=== PATIENT | female | born 1955 | race Caucasian/White ===

== ENCOUNTER 2018-12-21 08:17 | Outpatient (RCR) | payer MEDICARE, MEDICAID ==
[~2018-12-21 08:17] MED LIST: ANTIHISTAMINE; APRESOLINE; APRESOLINE 25MG25 MG PO; BYDUREON INJ; BYDUREON2MG SQ; CETIRIZINE; DESYREL; FUROSEMIDE; GLUCOPHAGE; HCTZ; HCTZ 25MG25 MG PO; HYDRALAZINE HC100 MG PO; HYDROCHLOROTHIA25 MG PO; K-DUR 2020 MEQ PO; LAMICTAL; LAMICTAL XR300 MG PO; LAMICTAL150 MG PO; LAMICTAL200 MG PO; METFORMIN HYD1000 MG PO; METFORMIN850 MG PO; METOPROLOL SR100 MG PO; METOPROLOL SUCC50 MG PO; NORCO 325 MG-51 TAB PO; OMEPRAZOLE DR20 MG PO; ONGLYZA5 MG PO; PLAVIX 75MG TAB75 MG PO; POTASSIUM CH2 MEQ/ML PO; PRILOSEC; PROTONIX40 MG PO; REGLAN 10MG10 MG/TAB PO; REGLAN 5MG T5 MG/TAB PO; SINGULAIR10 MG PO; TRAZADONE HYDR100 MG PO; ULTRAM 50MG TAB50 MG PO; ZOCOR 40MG40 MG PO; ZOCOR10 MG PO; ZYLOPRIM 100MG100 MG PO
== END 2019-03-21 | disposition home or self-care (01) ==
LOC: WSST
DX: R13.10 Dysphagia, unspecified (principal)

== ENCOUNTER → 2018-12-30 | Outpatient (CLI) | payer MEDICARE, MEDICAID | LOC: COL.RAD 08:30 | DX: R13.10 Dysphagia, unspecified (principal) ==

== ENCOUNTER → 2021-09-25 | Outpatient (CLI) | payer MEDICARE, MEDICAID | LOC: COL.RAD 07:28 | DX: R53.1 Weakness (principal); Z86.73 Personal history of transient ischemic attack (TIA), and cerebral infarction without residual deficits | CPT/HCPCS: A9575 ==

== ENCOUNTER 2021-11-02 16:18 | Emergency (ER) | payer MEDICARE, MEDICAID ==
[~2021-11-02] VITALS: Ht 167.6 cm; Wt 82.3 kg
[2021-11-02 16:27] VITALS: TEMP 97.9
[2021-11-02 16:56] LABS: BASO % 0.3 % (0.0-2.0); EOS # 0.1 K/mm3 (0.0-0.7); EOS % 1.6 % (0.0-4.0); GRAN # 2.3 K/mm3 (1.4-6.5); GRAN % 40.1 % (42.2-75.2); HEMATOCRIT 43.2 % (37.0-47.0); HEMOGLOBIN 14.4 g/dl (12.5-16.0); LYMPH # 2.7 K/mm3 (1.2-3.4); LYMPH % 47.2 % (20.0-51.0); MEAN CELL VOLUME 92 fl (80.0-100.0); MEAN CORPUSCULAR HEMOGLOBIN 31 pg (27-31); MEAN CORPUSCULAR HGB CONC 33 g/dl (33.0-37.0); MEAN PLATELET VOLUME 10.8 fl (7.4-10.4); MONO # 0.6 K/mm3 (0.1-0.6); MONO % 10.5 % (1.7-9.3); PLATELET COUNT 239 K/mm3 (130-400); RED BLOOD COUNT 4.71 M/mm3 (4.10-5.30); REDCELL DISTRIBUTION WIDTH-CV 13.2 % (11.5-14.5)
[2021-11-02 16:57] LABS: INR 1.2 (0.8-3.0); PROTHROMBIN TIME 13.1 SECONDS (9.7-12.8)
[2021-11-02 17:00] LABS: PARTIAL THROMBOPLASTIN TIME 32.6 SECONDS (26.0-37.0)
[2021-11-02 17:55] LABS: ALANINE AMINOTRANSFERASE 28 U/L (0-55); ALBUMIN 4.3 gm/dL (3.4-4.8); ALKALINE PHOSPHATASE 53 U/L (40-150); ANION GAP 11 mmol/L (7-16); AST,SGOT 29 U/L (5-34); BILIRUBIN,TOTAL 0.5 mg/dL (0.2-1.2); BLOOD UREA NITROGEN 12 mg/dL (10-20); CALCIUM 9.7 mg/dL (8.4-10.2); CARBON DIOXIDE 21 mmol/L (23-31); CHLORIDE 108 mmol/L (98-107); CREATININE, serum 1.23 mg/dL (0.57-1.11); GLUCOSE 138 mg/dL (70-99); POTASSIUM 4.1 mmol/L (3.5-4.5); SODIUM 140 mmol/L (136-145); TOTAL PROTEIN 7.1 gm/dL (6.2-8.1)
[2021-11-02 17:56] LABS: TROPONIN-I < 0.010 ng/mL (0.00-0.033)
[2021-11-02 20:42] VITALS: BP 175/99; PULSE 89
== END 2021-11-02 20:45 | disposition short-term general hospital (02) ==
LOC: COL.ER 16:18
PROVIDERS: Emergency Medicine
DX: I10 Essential (primary) hypertension (principal); R53.1 Weakness; R29.818 Other symptoms and signs involving the nervous system; Z91.040 Latex allergy status; Z79.01 Long term (current) use of anticoagulants
CPT/HCPCS: J2405; Q9967

== ENCOUNTER 2024-01-05 19:41 | Emergency (ER) | payer MEDICARE, MEDICAID ==
[~2024-01-05] VITALS: Ht 167.6 cm; Wt 77.3 kg
[~2024-01-05 19:41] MED LIST changes: +AJOVY AUTO225 MG/1.5 SQ; +ATARAX 25MG25 MG/TAB PO; +ERGOCALCIFER50000 IU PO; +FLEXERIL 1010 MG/TAB PO; +LIPITOR 40MG TA40 MG PO; +MAG-OX 400400 MG/TAB PO; +MIRALAX PA17 GM/Dose PO; +NEURONTIN100 MG/CAP PO; +PERCOCET 325 MG1 TA2 PO; +PROTONIX 40MG T40 MG PO; +SINGULAIR 110 MG/TAB PO; +UBRELVY100 MG PO; +VASOTEC20 MG PO; +VICTOZA6 MG/ML SQ; +ZOFRAN ODT4 MG PO; +ZYRTEC 10MG10 MG PO
[2024-01-05 19:42] VITALS: TEMP 98.3
[2024-01-05 20:19] LABS: BASO % 0.5 % (0.0-2.0); EOS % 0.2 % (0.0-4.0); GRAN # 3.2 K/mm3 (1.4-6.5); GRAN % 54.1 % (42.2-75.2); HEMATOCRIT 38.5 % (37.0-47.0); HEMOGLOBIN 12.6 g/dl (12.5-16.0); LYMPH # 2.3 K/mm3 (1.2-3.4); LYMPH % 38.6 % (20.0-51.0); MEAN CELL VOLUME 92 fl (80.0-100.0); MEAN CORPUSCULAR HEMOGLOBIN 30 pg (27-31); MEAN CORPUSCULAR HGB CONC 33 g/dl (33.0-37.0); MEAN PLATELET VOLUME 10.7 fl (7.4-10.4); MONO # 0.4 K/mm3 (0.1-0.6); MONO % 6.3 % (1.7-9.3); PLATELET COUNT 221 K/mm3 (130-400); REDCELL DISTRIBUTION WIDTH-CV 12.7 % (11.5-14.5)
[2024-01-05 21:04] LABS: ALANINE AMINOTRANSFERASE 13 U/L (0-55); ALBUMIN 3.6 g/dL (3.4-4.8); ALKALINE PHOSPHATASE 55 U/L (40-150); ANION GAP 12 mmol/L (7-16); AST,SGOT 13 U/L (5-34); BILIRUBIN,TOTAL 0.5 mg/dL (0.2-1.2); BLOOD UREA NITROGEN 15 mg/dL (10-20); CALCIUM 9.5 mg/dL (8.4-10.2); CHLORIDE 106 mEq/L (98-107); CREATININE, serum 1.18 mg/dL (0.57-1.11); GLUCOSE 178 mg/dL (70-99); MAGNESIUM 1.6 mg/dL (1.6-2.6); POTASSIUM 3.6 mEq/L (3.5-4.5); SODIUM 138 mEq/L (136-145)
[2024-01-05 21:27] LABS: TROPONIN-I < 0.010 ng/mL (0.00-0.033)
[2024-01-05] MEDS ORDERED: Magnesium Sulfate 4% 50 ML IV ONE (22:00)
[2024-01-05 22:59] LABS: COLLECTION METHOD CLEAN CATCH
[2024-01-05 23:10] LABS: PH 5.5 (5.0-8.5); URINE APPEARANCE CLEAR (CLEAR/HAZY); URINE BLOOD NEGATIVE (NEGATIVE); URINE COLOR YELLOW (YELLOW); URINE GLUCOSE NEGATIVE (NEGATIVE); URINE KETONE NEGATIVE (NEGATIVE); URINE NITRATE NEGATIVE (NEGATIVE); URINE PROTEIN(semi-quant) NEGATIVE (NEGATIVE); URINE UROBILINOGEN 0.2 E.U/dL (0.2-1.0)
[2024-01-06] MEDS ORDERED: levETIRAcetam 500 MG TAB PO ONE (00:15)
[2024-01-06] MEDS ORDERED: KEPPRA250 MG PO (00:18)
[2024-01-06 00:23] VITALS: BP 131/75; PULSE 76
== END 2024-01-06 00:39 | disposition other institution (70) ==
LOC: COL.ER 19:41
PROVIDERS: Emergency Medicine
DX: R55 Syncope and collapse (principal); G40.909 Epilepsy, unspecified, not intractable, without status epilepticus; I44.7 Left bundle-branch block, unspecified; E86.0 Dehydration; Z91.040 Latex allergy status
CPT/HCPCS: J3475

== ENCOUNTER 2024-02-03 11:56 | Day surgery (SDC) | payer MEDICARE, MEDICAID ==
[~2024-02-03] VITALS: Ht 167.6 cm; Wt 75.0 kg
[2024-02-03] VITALS (9 sets, daily range): BP systolic 106–141; BP diastolic 64–84; PULSE 71–87; TEMP 97.3–98.1
[~2024-02-03 11:56] MED LIST changes: +KEPPRA250 MG PO
[2024-02-03] MEDS ORDERED: ceFAZolin 1 G in Water For Injection,Sterile 10 ML IV SCH ×2 (12:00→18:00)
[2024-02-03] MEDS ORDERED: 1/2 NS 1,000 ML IV SCH (12:00)
[2024-02-03] MEDS ORDERED: ZYPREXA2.5 MG PO (12:21)
[2024-02-03] MEDS ORDERED: QULIPTA60 MG PO (12:22)
[2024-02-03 12:43] LABS: HEMATOCRIT 42.9 % (37.0-47.0); HEMOGLOBIN 14.3 g/dl (12.5-16.0); MEAN CELL VOLUME 91 fl (80.0-100.0); MEAN CORPUSCULAR HEMOGLOBIN 30 pg (27-31); MEAN CORPUSCULAR HGB CONC 33 g/dl (33.0-37.0); MEAN PLATELET VOLUME 10.2 fl (7.4-10.4); PLATELET COUNT 235 K/mm3 (130-400); REDCELL DISTRIBUTION WIDTH-CV 12.8 % (11.5-14.5)
[2024-02-03 12:48] LABS: INR 1.2 (0.8-3.0); PROTHROMBIN TIME 12.8 SECONDS (9.7-12.8)
[2024-02-03 12:59] LABS: CALCIUM 10.2 mg/dL (8.4-10.2); CREATININE, serum 1.25 mg/dL (0.57-1.11); POTASSIUM 4.4 mEq/L (3.5-4.5)
[2024-02-03] MEDS ORDERED: NS 1,000 ML IV.SOLN. IR SCH (14:45)
[2024-02-03] MEDS ORDERED: Topical Skin Adhesive 1 EACH (1 ML) TOP ONE (15:33)
--- NOTE | 2024-02-03 15:35 | NUR ---
SEE MERGE FOR PROCEDURE DOCUMENTATION
[2024-02-03] MEDS ORDERED: fentaNYL 50 MCG/ML 2 ML VIAL IV SCH (16:04)
[2024-02-03] MEDS ORDERED: Midazolam 2 MG/2 ML VIAL IV SCH (16:05)
[2024-02-03] MEDS ORDERED: hydrOXYzine HCl 25 MG TAB PO PRN (16:15)
[2024-02-03] MEDS ORDERED: Bisacodyl 5 MG TAB PO PRN (16:15)
[2024-02-03] MEDS ORDERED: Acetaminophen 500 MG TAB PO PRN (17:00)
[2024-02-03] MEDS ORDERED: Magnes Hydrox (MOM) 80 MG/ML 30 ML CUP PO PRN (17:00)
[2024-02-03] MEDS ORDERED: Ondansetron 4 MG/2 ML VIAL IV PRN (17:00)
[2024-02-03] MEDS ORDERED: traMADol 50 MG TAB PO PRN (17:00)
--- NOTE | 2024-02-03 17:00 | NUR ---
PT ESCORTED TO ROOM AT THIS TIME VIA BED. PT ALERTED AND ORIENTED X4. VSS. PACEMAKER AND PREVIOUS LOOP RECORDER SITE DRESSINGS CDI. SLING ON LEFT ARM RESTRICTION. PT EDUCATED ON POST-PACEMAKER INSTRUCTIONS. TELEMETRY ON AND READS 89BPM. PT V-PACED ON TELE. PT ORIENTED TO ROOM AND CALL LIGHT. BED ALARM ON. NO FURTHER CONCERNS AT THIS TIME.
[2024-02-03] MEDS ORDERED: Clopidogrel 75 MG TAB PO SCH (21:00)
[2024-02-03] MEDS ORDERED: OLANZapine 5 MG TAB PO SCH (21:00)
[2024-02-03] MEDS ORDERED: Atorvastatin 40 MG TAB PO SCH (21:00)
[2024-02-03] MEDS ORDERED: Melatonin 3 MG TAB PO PRN (21:00)
[2024-02-03] MEDS ORDERED: Gabapentin 100 MG CAP PO SCH (21:00)
[2024-02-03] MEDS ORDERED: lamoTRIgine 100 MG TAB PO SCH (21:00)
[2024-02-03] MEDS ORDERED: Montelukast 10 MG TAB PO SCH (21:00)
--- NOTE | 2024-02-03 22:26 | NUR ---
PT RESTING IN BED, ALERT AND ORIENTEDX4. ASSESSED AND GAVE NIGHT MEDS. RATES PAIN 5/10 IN THE LEFT CHEST SURGICAL SITE. GAVE PT ULTRAM. PT HAS BEEN UP TO THE BATHROOM AND VOIDED. SURGAL SITES ARE CLEAN DRY INTACT. VITALS STABLE NO OTHER COMPLAINTS AT THIS TIME. CALL LIGHT WITHIN REACH.
[2024-02-04] VITALS (7 sets, daily range): BP systolic 102–135; BP diastolic 60–75; PULSE 75–82; TEMP 97.5–98.1
--- NOTE | 2024-02-04 | NUR ---
Recieved report from TUYET Villagomez. Assumed care of patient at this time.
--- NOTE | 2024-02-04 07:00 | NUR ---
NO CONCERNS FROM OVERNIGHT NURSE. PATIENT IS RESTING IN BED WATCHING TV. ALERT AND ORIENTED. DENIES PAIN OR DISCOMFORT AT THIS TIME. INCISION SITE TO LEFT CHEST IS COVERED WITH GAUZE AND TAPE. CDI. DEVICE DOWNLOADED. CXR AND EKG COMPLETED. CALL LIGHT WITHIN REACH.
[2024-02-04] MEDS ORDERED: Allopurinol 100 MG TAB PO SCH (09:00)
[2024-02-04] MEDS ORDERED: CEPHALEXIN500 M1 PO (11:56)
--- NOTE | 2024-02-04 13:13 | NUR ---
THIS RN DISCONTINUED INT TO LEFT AC. NO REDNESS, DRAINAGE, OR EDEMA NOTED. THIS RN ALSO GAVE PATIENT DISCHARGE INSTRUCTIONS AND EDUCATION. PATIENT IN UNDERSTANDING. FAMILY AT BEDSIDE. TELE REMOVED.
--- NOTE | 2024-02-04 13:40 | NUR ---
PATIENT ESCORTED OFF UNIT VIA WHEELCHAIR BY THIS RN. ALL BELONGINGS WITH PATIENT.
--- NOTE | 2024-02-04 13:50 | NUR ---
child daycare worker and SW Student met with patient to discuss discharge planning. Patient reports to live alone in [place] but has family visit her daily. Milagro (Daughter) [phone] and Agueda (daughter) [phone]. PCP is Dr. Flores, Pharmacy is [facility]. No issues affording medications. Insurance is Medicare A and B and Medicaid [employer]. DPOA-HC is Milagro. DME is walker and patient reports to be independent with ADLS. Patient reports she is able to transport herself to some appointments but her family worries about her driving so they either drive or come with her to her appointments when she drives. Patient reports her daughter and grandson will be staying with her for a bit after discharge. Patient plans to discharge home. Dischargee plan: Home
[2024-02-04] MEDS ORDERED: Cephalexin 500 MG CAP PO SCH (21:00)
== END 2024-02-04 13:30 | disposition home or self-care (01) ==
LOC: COL.CAR 11:56 → MEDICAL 16:45 → COL.CAR 02-04 13:30
PROVIDERS: Internal Medicine Cardiovascular Disease
DX: I45.5 Other specified heart block (principal); R55 Syncope and collapse; I44.1 Atrioventricular block, second degree; I34.0 Nonrheumatic mitral (valve) insufficiency; I69.398 Other sequelae of cerebral infarction; I10 Essential (primary) hypertension; I65.23 Occlusion and stenosis of bilateral carotid arteries; Z79.02 Long term (current) use of antithrombotics/antiplatelets; G43.909 Migraine, unspecified, not intractable, without status migrainosus
CPT/HCPCS: OP; C1769; C1785; C1894; C1898; J0665-JZ; J0690; J2250; J3010; J7030